=== PATIENT | female | born 1985 | race African-American/Black ===

== ENCOUNTER 2016-02-22 21:24 | Emergency (ER) | payer OTHER ==
[~2016-02-22] VITALS: Ht 157.5 cm; Wt 90.0 kg
[~2016-02-22 21:24] MED LIST: IBUP800T23 PO; ROBA500T PO
[2016-02-22 21:26] VITALS: BP 175/112; PULSE 79; RESP 16; TEMP 98.4; O2SAT 94
[2016-02-22] MEDS ORDERED: ROBA500T PO (21:54)
[2016-02-22] MEDS ORDERED: IBUP800T23 PO (21:54)
--- NOTE | 2016-02-22 21:58 | PD ---
HPI Chief Complaint: Pain: Acute or Chronic Time Seen by Provider: 21:48 Travel History International Travel<30 days: No Contact w/Intl Traveler<30days: No Traveled to known affect area: No History of Present Illness HPI This is a 31-year-old female with a long-standing history of sciatica who presents for evaluation of the same. She reports that she was diagnosed with sciatica when she was 18 years old. Over the past 3 months she has been having worsening sciatic pain. She describes it as a sharp pain in her right buttocks that radiates down the anterior aspect of the right leg. Pain is worse with movement, walking. She has tried [id number] medications but symptoms persist. Recently she started going to a chiropractor as well. She denies any abdominal pain, bowel or bladder incontinence, saddle anesthesia, dysuria, hematuria, IV drug abuse, history of cancer. Denies any known mechanism of injury. She has no other complaints at this time. PFSH Past Medical History Asthma: Yes Depression: Yes Diminished Hearing: No Hypertension: Yes ?: Not : 0 Para: 0 Social History Alcohol Use: No (1 BEER DAILY) Tobacco Use: Yes (<1 PPD) Substance Use: No Allergies-Medications (Allergen,Severity, Reaction): Coded Allergies: No Known Allergies (Verified , 02/22/16) Reported Meds & Prescriptions Reported Meds & Active Scripts Active Ibuprofen 800 Mg Tab 800 Mg PO Q6HR PRN Robaxin (Methocarbamol) 500 Mg Tab 500 Mg PO QID PRN Review of Systems Except as stated in HPI: all other systems reviewed are Neg Physical Exam Narrative GENERAL: Well-developed well-nourished female in no acute distress SKIN: Warm and dry. CARDIOVASCULAR: Regular rate and rhythm. No murmur appreciated. RESPIRATORY: No accessory muscle use. Clear to auscultation. Breath sounds equal bilaterally. GASTROINTESTINAL: Abdomen soft, non-tender, nondistended. MUSCULOSKELETAL: No obvious deformities. Positive straight leg raise on the right side. The patient has full muscle strength in the lower extremities. There is no lower extremity edema with negative Homans bilaterally. 2+ dorsalis pedis and posterior tibial pulses bilaterally. There is tenderness to palpation in the right sacroiliac musculature region. There is no tenderness to palpation along the lumbar midline. No CVA tenderness. NEUROLOGICAL: Awake and alert. No obvious cranial nerve deficits. Motor grossly within normal limits. Normal speech. Data Data Last Documented VS Vital Signs Date Time Temp Pulse Resp B/P Pulse Ox O2 Delivery O2 Flow Rate FiO2 02/22/16 21:26 98.4 79 16 175/112 94 Room Air Orders Ketorolac Inj (Toradol Inj) (02/22/16 22:00) Orphenadrine Inj (Norflex Inj) (02/22/16 22:00) MDM Medical Decision Making Medical Screen Exam Complete: Yes Emergency Medical Condition: Yes Medical Record Reviewed: Yes Differential Diagnosis Herniated nucleus pulposus, piriformis syndrome, muscle spasm, muscle strain, DVT, peripheral vascular disease, intermittent claudication, spinal stenosis, ankylosing spondylitis Narrative Course 31-year-old female with a long-standing history of sciatica presents for evaluation of symptoms consistent with her previous sciatic pain. Plan is to treat her symptomatically with NSAIDs, muscle relaxants. I did recommend that she follow up with primary care physician for this long-standing issue, likely for outpatient physical therapy versus pain management versus neurosurgery referral. Diagnosis Primary Impression: Sciatica Qualified Code: M54.31 - Sciatica of right side Additional Instructions: Medication as needed. Do not take ibuprofen with meals. Do not drive or drink alcohol when taking Robaxin. Follow-up with primary care physician. Return for any emergent medical conditions. Med/Other Pt SpecificInfo: Prescription(s) given Scripts Ibuprofen 800 Mg [id number] Mg PO Q6HR PRN (PAIN) #30 TAB Ref 0 Prov:Lorelei Rizo DO 02/22/16 Methocarbamol (Robaxin)500 Mg [id number] Mg PO QID PRN (MUSCLE SPASM) #30 TAB Ref 0 Prov:Lorelei Rizo DO 02/22/16 Disposition: 01 DISCHARGE HOME Condition: Stable Jorge Handley Feb 22, 2016 21:58
[2016-02-22] MEDS ORDERED: ORPHENADRINE INJ 60 MG/2 ML AMP IM ONE (22:00)
[2016-02-22] MEDS ORDERED: KETOROLAC TROMETHAMINE 60 MG/2 ML (IM) VIAL IM ONE (22:00)
[2016-04-01] MEDS ORDERED: MOTR200T4 PO (11:09)
[2016-04-01] MEDS ORDERED: ACET-703 PO (11:09)
[2016-04-01] MEDS ORDERED: NAPR220T95 PO (11:09)
[2016-04-01] MEDS ORDERED: ROBA500T PO (11:33)
[2016-04-01] MEDS ORDERED: IBUP800T23 PO (11:33)
[2016-05-01] MEDS ORDERED: HYDR12.56 PO ×2 (11:19→11:55)
[2016-05-01] MEDS ORDERED: ALBU0.08 NEB (11:29)
[2016-05-01] MEDS ORDERED: BENZ100 PO (11:29)
[2016-05-01] MEDS ORDERED: ALBUAER3 INH (11:29)
[2016-05-01] MEDS ORDERED: PRED20 PO (11:29)
[2016-05-01] MEDS ORDERED: IPRASOL INH (11:51)
== END 2016-02-22 22:38 | disposition home or self-care (01) ==
LOC: NEPB 21:24
DX: M54.31 Sciatica, right side (principal); J45.909 Unspecified asthma, uncomplicated; I10 Essential (primary) hypertension
CPT/HCPCS: 96372; 99283; J1885; J2360

== ENCOUNTER 2016-04-17 16:54 | Emergency (ER) | payer SELFPAY ==
[~2016-04-17] VITALS: Ht 157.5 cm; Wt 90.0 kg
[~2016-04-17 16:54] MED LIST changes: +ACET-703 PO; +MOTR200T4 PO; +NAPR220T95 PO
[2016-04-17 16:56] VITALS: BP 178/114; PULSE 130; RESP 20; TEMP 102.7; O2SAT 89
--- NOTE | 2016-04-17 18:44 | PD ---
HPI Chief Complaint: Fever Time Seen by Provider: 18:44 Travel History International Travel<30 days: No Contact w/Intl Traveler<30days: No Traveled to known affect area: No History of Present Illness HPI 31-year-old female with history of asthma and hypertension presents to the emergency department for evaluation of fever, chills, cough, chest congestion, and nausea worsening over the last 2 days. Patient denies any vomiting. She has been voiding normal. Denies any abdominal pain. She has no nuchal rigidity , headache, focal deficits, or weakness. She has no other symptoms to report at this time. [facility] Past Medical History Asthma: Yes Depression: Yes Diminished Hearing: No Hypertension: Yes ?: Not LMP: MAR 2016 : 0 Para: 0 Social History Alcohol Use: No (1 BEER DAILY) Tobacco Use: Yes (<1 PPD) Substance Use: No Allergies-Medications (Allergen,Severity, Reaction): Coded Allergies: No Known Allergies (Verified , 04/01/16) Reported Meds & Prescriptions Reported Meds & Active Scripts Active Ibuprofen 800 Mg Tab 800 Mg PO Q6HR PRN Robaxin (Methocarbamol) 500 Mg Tab 500 Mg PO QID PRN Reported Tylenol Extra Strength (Acetaminophen) 500 Mg Tab 500 Mg PO Q4-6H PRN Motrin Ib (Ibuprofen) 200 Mg Tab 200 Mg PO Q4H PRN Aleve (Naproxen Sodium) 220 Mg Tab 220 Mg PO BID PRN Review of Systems Except as stated in HPI: all other systems reviewed are Neg Physical Exam Narrative GENERAL: Well-nourished female patient, sitting on the bed, in no acute distress SKIN: Warm and dry. HEAD: Atraumatic. Normocephalic. EYES: Pupils equal and round. No scleral icterus. No injection or drainage. ENT: No nasal bleeding or discharge. Mucous membranes pink and moist. NECK: Trachea midline. No JVD. CARDIOVASCULAR: Tachycardic rate and rhythm. No murmur appreciated. RESPIRATORY: No accessory muscle use. Diminished to auscultation. Breath sounds equal bilaterally. GASTROINTESTINAL: Abdomen soft, non-tender, nondistended. Hepatic and splenic margins not palpable. MUSCULOSKELETAL: No obvious deformities. No clubbing. No cyanosis. No edema. NEUROLOGICAL: Awake and alert. No obvious cranial nerve deficits. Motor grossly within normal limits. Normal speech. PSYCHIATRIC: Appropriate mood and affect; insight and judgment normal. Data Data Last Documented VS Vital Signs Date Time Temp Pulse Resp B/P Pulse Ox O2 Delivery O2 Flow Rate FiO2 04/17/16 16:56 102.7 130 20 178/114 89 Room Air Orders Electrocardiogram (04/17/16 18:43) Complete Blood Count With Diff (04/17/16 18:43) Comprehensive Metabolic Panel (04/17/16 18:43) Prothrombin Time / Inr (Pt) (04/17/16 18:43) Act Partial Throm Time (Ptt) (04/17/16 18:43) Lactic Acid Sepsis Protocol (04/17/16 18:43) Magnesium (Mg) (04/17/16 18:43) Ckmb (Isoenzyme) Profile (04/17/16 18:43) Troponin I (04/17/16 18:43) Urinalysis - C+S If Indicated (04/17/16 18:43) Influenzae A/B Antigen (04/17/16 18:43) Blood Culture (04/17/16 18:43) Chest, Single Ap (04/17/16 18:43) Ed Urine Pregnancytest Poc (04/17/16 18:43) Acetaminophen (Tylenol) (04/17/16 19:00) Sodium Chlor 0.9% 1000 Ml Inj (Ns 1000 M (04/17/16 19:45) Group A Rapid Strep Screen (04/17/16 19:45) Labs Laboratory Tests Test 04/17/16 19:10 White Blood Count 6.0 TH/MM3 Red Blood Count 4.84 MIL/MM3 Hemoglobin 15.0 GM/DL Hematocrit 44.3 % Mean Corpuscular Volume 91.5 FL Mean Corpuscular Hemoglobin 31.0 PG Mean Corpuscular Hemoglobin 33.9 % Concent Red Cell Distribution Width 13.9 % Platelet Count 210 TH/MM3 Mean Platelet Volume 8.5 FL Neutrophils (%) (Auto) 78.8 % Lymphocytes (%) (Auto) 7.7 % Monocytes (%) (Auto) 12.9 % Eosinophils (%) (Auto) 0.3 % Basophils (%) (Auto) 0.3 % Neutrophils # (Auto) 4.8 TH/MM3 Lymphocytes # (Auto) 0.5 TH/MM3 Monocytes # (Auto) 0.8 TH/MM3 Eosinophils # (Auto) 0.0 TH/MM3 Basophils # (Auto) 0.0 TH/MM3 CBC Comment DIFF FINAL Differential Comment Prothrombin Time 10.7 SEC Prothromb Time International 1.0 RATIO Ratio Activated Partial 26.9 SEC Thromboplast Time Urine Color YELLOW Urine Turbidity HAZY Urine pH 6.5 Urine Specific [place] 1.035 Urine Protein 30 mg/dL Urine Glucose (UA) NEG mg/dL Urine Ketones 10 mg/dL Urine Occult Blood NEG Urine Nitrite NEG Urine Bilirubin NEG Urine Urobilinogen 4.0 MG/DL Urine Leukocyte Esterase SMALL Urine WBC 3 /hpf Urine Squamous Epithelial 20 /hpf Cells Urine Mucus FEW /lpf Microscopic Urinalysis Comment CATH-CULT NOT IND Sodium Level 136 MEQ/L Potassium Level 3.3 MEQ/L Chloride Level 103 MEQ/L Carbon Dioxide Level 25.6 MEQ/L Anion Gap 7 MEQ/L Blood Urea Nitrogen 10 MG/DL Creatinine 1.06 MG/DL Estimat Glomerular Filtration 72 ML/MIN Rate Random Glucose 105 MG/DL Lactic Acid Level 2.0 mmol/L Calcium Level 8.9 MG/DL Magnesium Level 2.3 MG/DL Total Bilirubin 0.4 MG/DL Aspartate Amino Transf 21 U/L (AST/SGOT) Alanine Aminotransferase 27 U/L (ALT/SGPT) Alkaline Phosphatase 88 U/L Total Creatine Kinase 57 U/L Troponin I LESS THAN 0.02 NG/ML Total Protein 9.6 GM/DL Albumin 4.2 GM/DL [facility] Medical Decision Making Medical Screen Exam Complete: Yes Emergency Medical Condition: Yes Medical Record Reviewed: Yes Differential Diagnosis Influenza versus pneumonia versus bronchitis versus UTI versus sepsis Narrative Course 31-year-old female presents to [facility] for evaluation. Workup is initiated in triage. Once a medical bed becomes available, patient will be transferred and care assumed by that provider. Condition: Stable RodriguezNoam godwintye FREITAS Apr 17, 2016 18:44
[2016-04-17] MEDS ORDERED: ACETAMINOPHEN 325 MG TAB PO ONE (19:00)
[2016-04-17 19:15] VITALS: BP 105/66; PULSE 111; RESP 20; O2SAT 97
[2016-04-17] MEDS ORDERED: SODIUM CHLOR 0.9% 1000 ML INJ 1,000 ML IV ONE ×2 (19:45→21:45)
--- NOTE | 2016-04-17 19:45 | PD ---
Physical Exam Date Seen by Provider: Apr 17, 2016 Time Seen by Provider: 19:42 Narrative 31-year-old female presents to the emergency department for evaluation of flulike symptoms for the past 2 days. Workup was initiated triage. Patient states for the past 2 days, she has had fevers, cough, congestion, nausea. She reports chest pain with coughing. She reports a history of sciatica and takes ibuprofen and Robaxin at home. She denies any history of pneumonia. She does not smoke tobacco. Patient denies any vomiting. She has no nuchal rigidity. Patient denies any chance of . GENERAL: Well-developed well-nourished female patient, ambulatory. Patient has a temperature 102.7. SKIN: Warm and dry. HEAD: Normocephalic. Atraumatic. ENT: Mucosa pink and moist. Bilateral tonsils are erythematous without exudates. No uvular edema. No uvular, palatal, or tonsillar deviation. Airway patent. Nasal turbinates appear normal without nasal blood, purulent drainage or septal hematoma. EYES: No scleral icterus. No injection or drainage. NECK: Supple, trachea midline. No JVD or lymphadenopathy. CARDIOVASCULAR: Regular rate and rhythm without murmurs, gallops, or rubs. RESPIRATORY: Breath sounds equal bilaterally. No accessory muscle use. Lungs sounds are clear to auscultation. GASTROINTESTINAL: Abdomen soft, non-tender, nondistended. MUSCULOSKELETAL: No cyanosis, or edema. BACK: Nontender without obvious deformity. No CVA tenderness. Data Data Last Documented VS Vital Signs Date Time Temp Pulse Resp B/P Pulse Ox O2 Delivery O2 Flow Rate FiO2 04/17/16 21:02 101.0 116 20 147/99 97 Room Air Orders Electrocardiogram (04/17/16 18:43) Complete Blood Count With Diff (04/17/16 18:43) Comprehensive Metabolic Panel (04/17/16 18:43) Prothrombin Time / Inr (Pt) (04/17/16 18:43) Act Partial Throm Time (Ptt) (04/17/16 18:43) Lactic Acid Sepsis Protocol (04/17/16 18:43) Magnesium (Mg) (04/17/16 18:43) Ckmb (Isoenzyme) Profile (04/17/16 18:43) Troponin I (04/17/16 18:43) Urinalysis - C+S If Indicated (04/17/16 18:43) Influenzae A/B Antigen (04/17/16 18:43) Blood Culture (04/17/16 18:43) Chest, Single Ap (04/17/16 18:43) Ed Urine Pregnancytest Poc (04/17/16 18:43) Acetaminophen (Tylenol) (04/17/16 19:00) Sodium Chlor 0.9% 1000 Ml Inj (Ns 1000 M (04/17/16 19:45) Group A Rapid Strep Screen (04/17/16 19:45) Strep Culture (Group A) (04/17/16 19:50) Ketorolac Inj (Toradol Inj) (04/17/16 21:45) Sodium Chlor 0.9% 1000 Ml Inj (Ns 1000 M (04/17/16 21:45) Potassium Chloride (Kcl) (04/17/16 22:45) Oseltamivir (Tamiflu) (04/17/16 22:45) Labs Laboratory Tests Test 04/17/16 19:10 White Blood Count 6.0 TH/MM3 Red Blood Count 4.84 MIL/MM3 Hemoglobin 15.0 GM/DL Hematocrit 44.3 % Mean Corpuscular Volume 91.5 FL Mean Corpuscular Hemoglobin 31.0 PG Mean Corpuscular Hemoglobin 33.9 % Concent Red Cell Distribution Width 13.9 % Platelet Count 210 TH/MM3 Mean Platelet Volume 8.5 FL Neutrophils (%) (Auto) 78.8 % Lymphocytes (%) (Auto) 7.7 % Monocytes (%) (Auto) 12.9 % Eosinophils (%) (Auto) 0.3 % Basophils (%) (Auto) 0.3 % Neutrophils # (Auto) 4.8 TH/MM3 Lymphocytes # (Auto) 0.5 TH/MM3 Monocytes # (Auto) 0.8 TH/MM3 Eosinophils # (Auto) 0.0 TH/MM3 Basophils # (Auto) 0.0 TH/MM3 CBC Comment DIFF FINAL Differential Comment Prothrombin Time 10.7 SEC Prothromb Time International 1.0 RATIO Ratio Activated Partial 26.9 SEC Thromboplast Time Urine Color YELLOW Urine Turbidity HAZY Urine pH 6.5 Urine Specific [place] 1.035 Urine Protein 30 mg/dL Urine Glucose (UA) NEG mg/dL Urine Ketones 10 mg/dL Urine Occult Blood NEG Urine Nitrite NEG Urine Bilirubin NEG Urine Urobilinogen 4.0 MG/DL Urine Leukocyte Esterase SMALL Urine WBC 3 /hpf Urine Squamous Epithelial 20 /hpf Cells Urine Mucus FEW /lpf Microscopic Urinalysis Comment CATH-CULT NOT IND Sodium Level 136 MEQ/L Potassium Level 3.3 MEQ/L Chloride Level 103 MEQ/L Carbon Dioxide Level 25.6 MEQ/L Anion Gap 7 MEQ/L Blood Urea Nitrogen 10 MG/DL Creatinine 1.06 MG/DL Estimat Glomerular Filtration 72 ML/MIN Rate Random Glucose 105 MG/DL Lactic Acid Level 2.0 mmol/L Calcium Level 8.9 MG/DL Magnesium Level 2.3 MG/DL Total Bilirubin 0.4 MG/DL Aspartate Amino Transf 21 U/L (AST/SGOT) Alanine Aminotransferase 27 U/L (ALT/SGPT) Alkaline Phosphatase 88 U/L Total Creatine Kinase 57 U/L Troponin I LESS THAN 0.02 NG/ML Total Protein 9.6 GM/DL Albumin 4.2 GM/DL [facility] Medical Record Reviewed: Yes Supervised Visit with TAYLOR: No Interpretation(s) Last Impressions Chest X-Ray 04/17/16 1843 Signed Impressions: Service Date/Time: Sunday, April 17, 2016 18:57 - CONCLUSION: No acute disease. Ryan Collier MD Differential Diagnosis Influenza versus pneumonia versus bronchitis versus UTI versus strep pharyngitis Narrative Course 31-year-old female presents to the emergency department for evaluation of flulike symptoms for the past 2 days. Workup was initiated in triage. EKG, CBC , CMP, PTT, PTT/INR, lactic acid, magnesium, CK, troponin, UA, and influenza, blood cultures 2, chest x-ray were ordered and pending. Strep swab is ordered and pending. Patient is given normal saline 1 L IV bolus. Patient was given Tylenol 650 mg by mouth in triage. EKG shows ST, HR 120, no acute ST changes. CBC shows no acute abnormality. CMP shows hypokalemia at 3.3, creatinine 1.06. Magnesium is 2.3. CK is 57. Troponin is less than 0.02. Lactic Acid is 2.0. UA shows no acute infection. UPT is negative. Influenza is negative. Strep is negative. Coags are unremarkable. Chest x-ray shows no acute disease. Patient has been on exam. Patient is given Toradol 30 mg IV and additional 1 L normal saline IV bolus. She started on Tamiflu given potassium 20 meq by mouth. Patient states she feels much better. The patient will be discharged with a prescription for Tamiflu. She is instructed to return for any acute worsening of symptoms. She is agreeable. Diagnosis Primary Impression: Influenza Referrals: Primary Care Physician call for appointment Patient Instructions: General Instructions, Influenza (ED) Additional Instruction: Take Tylenol every 4 hours as needed for fever, bodyaches. [id number] ibuprofen every 6-8 hours as needed for fever/body aches. Take Tamiflu as directed. Drink plenty of fluids Follow-up with your primary care physician. Return immediately for any acute worsening of symptoms. Med/Other Pt SpecificInfo: Prescription(s) given Scripts Oseltamivir (Tamiflu)75 Mg Cap75 Mg PO BID 5 Days Ref 0 Prov:So Clark 04/17/16 Disposition: 01 DISCHARGE HOME Condition: Stable So Clark Apr 17, 2016 19:45
--- NOTE | 2016-04-17 19:47 | RADRPT ---
EXAM DATE/TIME: 04/17/2016 18:57 [place] COMPARISON: CHEST SINGLE AP, October 12, 2005, 1:14. INDICATIONS : Cough, fever, chest congestion starting today MEDICAL HISTORY : None. SURGICAL HISTORY : None. ENCOUNTER: Initial ACUITY: 1 day PAIN SCORE: 0/10 LOCATION: Bilateral chest FINDINGS: A single view of the chest demonstrates the lungs to be symmetrically aerated without evidence of mas s, infiltrate or effusion. The cardiomediastinal contours are unremarkable. Osseous structures are intact. CONCLUSION: No acute disease. Ryan Collier MD on April 17, 2016 at 19:45 Board Certified Radiologist. This report was verified electronically.
[2016-04-17 19:52] LABS: BLOOD, URINE NEG (NEG); GLUCOSE,URINE NEG (NEG); KETONE, URINE 10 mg/dL (NEG); MUCUS URINE FEW /lpf (OCC); NITRITE,URINE NEG (NEG); PH, URINE 6.5 (5.0-8.5); SQUAMOUS EPITHELIAL CELL URINE 20 /hpf (0-5); URINE COLOR YELLOW (YELLW/STRAW)
[2016-04-17 19:53] LABS: COMMENT (UR) CATH-CULT NOT IND; CULTURE IF INDICATED CATH CULTURE NOT IND
[2016-04-17 19:55] LABS: AUTOMATED NEUTROPHIL # 4.8 TH/MM3 (1.8-7.7); BASOPHIL % 0.3 % (0.0-2.0); EOSINOPHIL % 0.3 % (0.0-4.0); HEMATOCRIT 44.3 % (35.0-46.0); HEMO FLAGS DIFF FINAL; LYMPH % 7.7 % (9.0-44.0); LYMPHOCYTE # 0.5 TH/MM3 (1.0-4.8); MEAN CELL VOLUME 91.5 FL (80.0-100.0); MEAN CORPUSCULAR HGB CONC 33.9 % (32.0-36.0); MONO % 12.9 % (0.0-8.0); NEUT % 78.8 % (16.0-70.0); PLATELET COUNT 210 TH/MM3 (150-450); RED BLOOD COUNT 4.84 MIL/MM3 (4.00-5.30); RED CELL DISTRIBUTION WIDTH 13.9 % (11.6-17.2)
[2016-04-17 20:03] LABS: APTT (PATIENT) 26.9 SEC (24.3-30.1); PROTHROMBIN TIME - PATIENT 10.7 SEC (9.8-11.6)
[2016-04-17 20:09] LABS: ANION GAP 7 MEQ/L (5-15); AST (GOT) 21 U/L (15-37); BICARBONATE 25.6 MEQ/L (21.0-32.0); BLOOD UREA NITROGEN 10 MG/DL (7-18); CHLORIDE 103 MEQ/L (98-107); GLOMERULAR FILTRATION RATE 72 ML/MIN (>89); MAGNESIUM 2.3 MG/DL (1.5-2.5); POTASSIUM 3.3 MEQ/L (3.5-5.1); SODIUM (NA) 136 MEQ/L (136-145)
[2016-04-17 20:13] LABS: ALKALINE PHOSPHATASE 88 U/L (45-117); ALT (GPT) 27 U/L (10-53); TOTAL BILIRUBIN ADULT 0.4 MG/DL (0.2-1.0)
[2016-04-17 20:17] LABS: CREATINE KINASE 57 U/L (26-192)
[2016-04-17 21:02] VITALS: BP 147/99; PULSE 116; RESP 20; TEMP 101; O2SAT 97
[2016-04-17] MEDS ORDERED: KETOROLAC TROMETHAMINE 30 MG/ML (IVP) VIAL IV PUSH ONE (21:45)
[2016-04-17] MEDS ORDERED: OSELTAMIVIR PHOSPHATE 75 MG CAP PO ONE (22:45)
[2016-04-17] MEDS ORDERED: POTASSIUM CHLORIDE 20 MEQ CONTROLLED RELEASE TAB PO ONE (22:45)
[2016-04-17] MEDS ORDERED: OSEL75 PO (22:49)
--- NOTE | 2016-04-18 19:02 | EKG ---
Date Performed: 04/17/2016 Time Performed: 19:01:39 PTAGE: 31 years EKG: SINUS TACHYCARDIA CONSIDER MYOCARDIAL INFARCTION-age indeterminate. ABNORMAL ECG PREVIOUS TRACING : 11/07/2006 02.58 DOCTOR: Claudio Nolasco Interpretating Date/Time 04/18/2016 19:01:01
[2016-05-01] MEDS ORDERED: HYDR12.56 PO ×2 (11:19→11:55)
[2016-05-01] MEDS ORDERED: ALBUAER3 INH (11:29)
[2016-05-01] MEDS ORDERED: BENZ100 PO (11:29)
[2016-05-01] MEDS ORDERED: ALBU0.08 NEB (11:29)
[2016-05-01] MEDS ORDERED: PRED20 PO (11:29)
[2016-05-01] MEDS ORDERED: IPRASOL INH (11:51)
== END 2016-04-18 00:17 | disposition home or self-care (01) ==
LOC: NETRI 16:54 → NEPC 04-18 00:17
DX: J11.1 Influenza due to unidentified influenza virus with other respiratory manifestations (principal); J45.909 Unspecified asthma, uncomplicated; F32.9 Major depressive disorder, single episode, unspecified; I10 Essential (primary) hypertension
CPT/HCPCS: 71010; 80053; 81001; 82550; 83605; 83735; 84484; 84703; 85025; 85610; 85730; 87040; 87081; 87804; 87880; 93005; 96374; 99284; J1885; J7030

== ENCOUNTER 2016-12-22 14:33 | Emergency (ER) | payer SELFPAY ==
[~2016-12-22 14:33] MED LIST changes: +ALBU0.08 NEB; +ALBUAER3 INH; +BENZ100 PO; +HYDR12.56 PO; +IBUP1TAB7 PO; -IBUP800T23 PO; +OSEL75 PO; +PRED20 PO
[2016-12-22 14:36] VITALS: BP 173/102; PULSE 87; RESP 22; TEMP 99.1; O2SAT 97
[2016-12-22 15:49] LABS: AUTOMATED NEUTROPHIL # 4.3 TH/MM3 (1.8-7.7); BASOPHIL % 0.7 % (0.0-2.0); EOSINOPHIL # 0.2 TH/MM3 (0-0.4); EOSINOPHIL % 2.4 % (0.0-4.0); HEMATOCRIT 41.9 % (35.0-46.0); HEMO FLAGS DIFF FINAL; LYMPH % 28.9 % (9.0-44.0); MEAN CELL VOLUME 89.5 FL (80.0-100.0); MEAN CORPUSCULAR HEMOGLOBIN 29.8 PG (27.0-34.0); MEAN CORPUSCULAR HGB CONC 33.3 % (32.0-36.0); PLATELET COUNT 221 TH/MM3 (150-450); RED BLOOD COUNT 4.69 MIL/MM3 (4.00-5.30); RED CELL DISTRIBUTION WIDTH 12.9 % (11.6-17.2); WHITE BLOOD COUNT 6.9 TH/MM3 (4.0-11.0)
[2016-12-22 15:54] LABS: BACTERIA, URINE RARE /hpf; BLOOD, URINE NEG (NEG); COMMENT (UR) CULT NOT INDICATED; CULTURE IF INDICATED CULT NOT INDICATED; GLUCOSE,URINE NEG (NEG); KETONE, URINE NEG (NEG); NITRITE,URINE NEG (NEG); PH, URINE 5.5 (5.0-8.5); SQUAMOUS EPITHELIAL CELL URINE 2 /hpf (0-5); URINE COLOR YELLOW (YELLW/STRAW)
[2016-12-22 16:02] LABS: ANION GAP 8 MEQ/L (5-15); BICARBONATE 24.7 MEQ/L (21.0-32.0); BLOOD UREA NITROGEN 10 MG/DL (7-18); CHLORIDE 106 MEQ/L (98-107); GLOMERULAR FILTRATION RATE 111 ML/MIN (>89); POTASSIUM 3.9 MEQ/L (3.5-5.1); SODIUM (NA) 139 MEQ/L (136-145)
[2016-12-22 16:08] LABS: ALCOHOL LESS THAN 3 MG/DL (0-5)
[2016-12-22 16:49] VITALS: BP_SYST 171; BP_SYST 185; BP_DIAS 113; BP_DIAS 119; PULSE 70; RESP 16; O2SAT 100
[2016-12-22] MEDS ORDERED: LISI10TA3 PO ×2 (16:52→16:58)
--- NOTE | 2016-12-22 16:55 | PD ---
HPI Chief Complaint: Hypertension Time Seen by Provider: 16:54 Travel History International Travel<30 days: No Contact w/Intl Traveler<30days: No Traveled to known affect area: No History of Present Illness HPI 31-year-old female presents for evaluation of asymptomatic hypertension. She reports that she has a history of hypertension. She has not taken her lisinopril for 3 weeks. She had an appointment with her counselor Noah Altman today and her blood pressure was elevated so they sent her here. She has no medical complaints. She reports that she has a history of alcoholism, underwent detoxification 1 month ago but she has been relapsing, her last drink was 2 days ago. No other complaints. PFSH Past Medical History Asthma: Yes Depression: Yes Cardiovascular Problems: Yes (HTN) Diminished Hearing: No Hypertension: Yes Tetanus Vaccination: Unknown Influenza Vaccination: No ?: Not LMP: UNKNOWN : 0 Para: 0 Past Surgical History Surgical History: No Previous Surgery Social History Alcohol Use: Yes (LIQUOR AND BEER) Tobacco Use: No Substance Use: No Allergies-Medications (Allergen,Severity, Reaction): Coded Allergies: No Known Allergies (Verified Adverse Reaction, Unknown, 12/22/16) Reported Meds & Prescriptions Reported Meds & Active Scripts Active Lisinopril 10 Mg Tab 10 Mg PO DAILY Reported Lisinopril 10 Mg Tab 10 Mg PO DAILY Review of Systems Except as stated in HPI: all other systems reviewed are Neg Physical Exam Narrative GENERAL: Well-developed well-nourished female in no acute distress SKIN: Warm and dry. HEAD: Atraumatic. Normocephalic. EYES: Pupils equal and round. No scleral icterus. No injection or drainage. ENT: No nasal bleeding or discharge. Mucous membranes pink and moist. NECK: Trachea midline. No JVD. CARDIOVASCULAR: Regular rate and rhythm. No murmur appreciated. RESPIRATORY: No accessory muscle use. Clear to auscultation. Breath sounds equal bilaterally. GASTROINTESTINAL: Abdomen soft, non-tender, nondistended. Hepatic and splenic margins not palpable. MUSCULOSKELETAL: No obvious deformities. No edema NEUROLOGICAL: Awake and alert. No obvious cranial nerve deficits. Motor grossly within normal limits. Normal speech. PSYCHIATRIC: Appropriate mood and affect; insight and judgment normal. Data Data Last Documented VS Vital Signs Date Time Temp Pulse Resp B/P (MAP) Pulse Ox O2 Delivery O2 Flow Rate FiO2 12/22/16 16:49 70 16 171/113 (132) 100 Room Air 185/119 (141) 12/22/16 14:36 99.1 Orders Orders Complete Blood Count With Diff (12/22/16 14:50) Basic Metabolic Panel (Bmp) (12/22/16 14:50) Urinalysis - C+S If Indicated (12/22/16 14:50) Electrocardiogram (12/22/16 14:50) Drug Screen, Random Urine (12/22/16 14:50) Alcohol (Ethanol) (12/22/16 14:50) Lisinopril (Prinivil) (12/22/16 17:00) Ed Discharge Order (12/22/16 17:16) Labs Laboratory Tests Test 12/22/16 15:11 White Blood Count 6.9 TH/MM3 Red Blood Count 4.69 MIL/MM3 Hemoglobin 13.9 GM/DL Hematocrit 41.9 % Mean Corpuscular Volume 89.5 FL Mean Corpuscular Hemoglobin 29.8 PG Mean Corpuscular Hemoglobin Concent 33.3 % Red Cell Distribution Width 12.9 % Platelet Count 221 TH/MM3 Mean Platelet Volume 7.8 FL Neutrophils (%) (Auto) 62.0 % Lymphocytes (%) (Auto) 28.9 % Monocytes (%) (Auto) 6.0 % Eosinophils (%) (Auto) 2.4 % Basophils (%) (Auto) 0.7 % Neutrophils # (Auto) 4.3 TH/MM3 Lymphocytes # (Auto) 2.0 TH/MM3 Monocytes # (Auto) 0.4 TH/MM3 Eosinophils # (Auto) 0.2 TH/MM3 Basophils # (Auto) 0.0 TH/MM3 CBC Comment DIFF FINAL Differential Comment Urine Color YELLOW Urine Turbidity CLEAR Urine pH 5.5 Urine Specific [place] 1.019 Urine Protein NEG mg/dL Urine Glucose (UA) NEG mg/dL Urine Ketones NEG mg/dL Urine Occult Blood NEG Urine Nitrite NEG Urine Bilirubin NEG Urine Urobilinogen LESS THAN 2.0 MG/DL Urine Leukocyte Esterase NEG Urine RBC 1 /hpf Urine WBC 1 /hpf Urine Squamous Epithelial Cells 2 /hpf Urine Bacteria RARE /hpf Microscopic Urinalysis Comment CULT NOT INDICATED Blood Urea Nitrogen 10 MG/DL Creatinine 0.73 MG/DL Random Glucose 105 MG/DL Calcium Level 8.7 MG/DL Sodium Level 139 MEQ/L Potassium Level 3.9 MEQ/L Chloride Level 106 MEQ/L Carbon Dioxide Level 24.7 MEQ/L Anion Gap 8 MEQ/L Estimat Glomerular Filtration Rate 111 ML/MIN Urine Opiates Screen NEG Urine Barbiturates Screen NEG Urine Amphetamines Screen NEG Urine Benzodiazepines Screen POS Urine Cocaine Screen NEG Urine Cannabinoids Screen NEG Ethyl Alcohol Level LESS THAN 3 MG/DL MDM Medical Decision Making Medical Screen Exam Complete: Yes Emergency Medical Condition: Yes Medical Record Reviewed: Yes Differential Diagnosis Medication noncompliance, asymptomatic hypertension, secondary hypertension Narrative Course Lab work was ordered by the triage provider and is essentially unremarkable. She is positive for benzodiazepines. Her primary problem appears to be noncompliance with her lisinopril. She'll be given a refill of her lisinopril. She is stable for discharge Diagnosis Primary Impression: Noncompliance with medication regimen Additional Impression: Hypertension Qualified Codes: I10 - Essential (primary) hypertension Additional Instructions: Take the lisinopril as prescribed. Monitor blood pressure regular basis and follow-up with primary care physician. Med/Other Pt SpecificInfo: Prescription(s) given Scripts Lisinopril (Lisinopril) 10 Mg Tab 10 MG PO DAILY, #30 TAB 0 Refills Prov: Shayan Jane MD 12/22/16 Disposition: 01 DISCHARGE HOME Condition: Stable Jorge Handley Dec 22, 2016 16:55
[2016-12-22] MEDS ORDERED: LISINOPRIL 10 MG TAB PO ONE (17:00)
[2016-12-22 17:38] VITALS: BP 165/110
== END 2016-12-22 17:40 | disposition home or self-care (01) ==
LOC: NEPD 14:33
DX: I10 Essential (primary) hypertension (principal); Z91.14 Patient's other noncompliance with medication regimen; F32.9 Major depressive disorder, single episode, unspecified; J45.909 Unspecified asthma, uncomplicated
CPT/HCPCS: 80048; 80307; 81001; 85025; 99283

== ENCOUNTER 2017-02-25 10:22 | Emergency (ER) | payer OTHER ==
[~2017-02-25] VITALS: Ht 157.5 cm; Wt 90.0 kg
[~2017-02-25 10:22] MED LIST changes: -ACET-703 PO; -ALBU0.08 NEB; -ALBUAER3 INH; -BENZ100 PO; -HYDR12.56 PO; -IBUP1TAB7 PO; +LISI10TA3 PO; -MOTR200T4 PO; -NAPR220T95 PO; -OSEL75 PO; -PRED20 PO; -ROBA500T PO
[2017-02-25 10:23] VITALS: BP 185/115; PULSE 90; RESP 20; TEMP 98.9; O2SAT 96
[2017-02-25] MEDS ORDERED: SODIUM CHLOR 0.9% 1000 ML INJ 1,000 ML IV SCH (11:25)
[2017-02-25] MEDS ORDERED: ONDANSETRON HCL 4 MG/2 ML VIAL IVP ONE (11:30)
[2017-02-25] MEDS ORDERED: MORPHINE SULFATE 4 MG/ML INJ IV PUSH ONE (11:30)
[2017-02-25] MEDS ORDERED: KETOROLAC TROMETHAMINE 30 MG/ML (IVP) VIAL IVP ONE (11:30)
[2017-02-25] MEDS ORDERED: SODIUM CHLORIDE 0.9% FLUSH 10 ML FLUSH IV FLUSH PRN (11:30)
--- NOTE | 2017-02-25 11:33 | PD ---
HPI Chief Complaint: Abdominal Pain Time Seen by Provider: 11:19 Travel History International Travel<30 days: No Contact w/Intl Traveler<30days: No Traveled to known affect area: No History of Present Illness HPI The patient is a 32-year-old [place] female who presents emergency department for right lower quadrant abdominal pain. The patient has an intermittent history of right lower quadrant abdominal pain for last several months. The abdominal pain is intermittent, sharp, located right lower quadrant , occasionally radiates to the back. The patient denies any vaginal discharge, dysuria, or frequency, urgency, or vaginal bleeding. The patient states she is not sexually active, has a history of irregular menstrual cycles. The patient states her last menstrual cycle was 3 months ago, denies any previous diagnosis of polycystic ovarian syndrome or previous ovarian cyst. She does complain of occasional nausea and vomiting with the abdominal pain. She denies any diarrhea or constipation. She denies any previous abdominal surgeries. The patient did see her primary physician is [facility] who ordered laboratory evaluation outpatient which was unremarkable per the patient's report. The patient called her physician today and was referred to the emergency department for further evaluation. PFSH Past Medical History Asthma: Yes Depression: Yes Cardiovascular Problems: Yes (HTN) Diminished Hearing: No Hypertension: Yes Respiratory: Yes (ASTHMA) : 0 Para: 0 Social History Alcohol Use: Yes (LIQUOR AND BEER) Tobacco Use: No Substance Use: No Allergies-Medications (Allergen,Severity, Reaction): Coded Allergies: No Known Allergies (Verified Adverse Reaction, Unknown, 02/25/17) Reported Meds & Prescriptions Reported Meds & Active Scripts Active Lisinopril 10 Mg Tab 10 Mg PO DAILY Reported Lisinopril 10 Mg Tab 10 Mg PO DAILY Review of Systems Except as stated in HPI: all other systems reviewed are Neg General / Constitutional: Positive: Fever (intermittent fevers) Cardiovascular: No: Chest Pain or Discomfort Respiratory: No: Shortness of Breath Gastrointestinal: Positive: Nausea, Vomiting, Abdominal Pain, No: Diarrhea, Constipation, Loss of Appetite Genitourinary: No: Urgency, Frequency, Dysuria, Hematuria, Discharge, Vaginal Bleeding Physical Exam Narrative GENERAL: Awake, alert, pleasant 32-year-old female who appears her stated age and is in no acute respiratory distress. SKIN: Focused skin assessment warm/dry. HEAD: Atraumatic. Normocephalic. EYES: Pupils equal and round. No scleral icterus. No injection or drainage. ENT: No nasal bleeding or discharge. Mucous membranes pink and moist. NECK: Trachea midline. No JVD. CARDIOVASCULAR: Regular rate and rhythm. No murmur appreciated. RESPIRATORY: No accessory muscle use. Clear to auscultation. Breath sounds equal bilaterally. GASTROINTESTINAL: Abdomen soft, mild tenderness right lower quadrant suprapubic. No guarding or rigidity. Negative [place]. Back: No CVA tenderness. MUSCULOSKELETAL: No obvious deformities. No clubbing. No cyanosis. No edema. NEUROLOGICAL: Awake and alert. No obvious cranial nerve deficits. Motor grossly within normal limits. Normal speech. PSYCHIATRIC: Appropriate mood and affect; insight and judgment normal. Data Data Last Documented VS Vital Signs Date Time Temp Pulse Resp B/P (MAP) Pulse Ox O2 Delivery O2 Flow Rate FiO2 02/25/17 12:06 100 Room Air 02/25/17 10:23 98.9 90 20 Orders Orders Complete Blood Count With Diff (02/25/17 11:25) Comprehensive Metabolic Panel (02/25/17 11:25) Lipase (02/25/17 11:25) Urinalysis - C+S If Indicated (02/25/17 11:25) Ct Abd/Pel W/O Iv Contrast (02/25/17 11:25) Iv Access Insert/Monitor (02/25/17 11:25) Ecg Monitoring (02/25/17 11:25) Oximetry (02/25/17 11:25) Morphine Inj (Morphine Inj) (02/25/17 11:30) Ondansetron Inj (Zofran Inj) (02/25/17 11:30) Sodium Chlor 0.9% 1000 Ml Inj (Ns 1000 M (02/25/17 11:25) Sodium Chloride 0.9% Flush (Ns Flush) (02/25/17 11:30) Ketorolac Inj (Toradol Inj) (02/25/17 11:30) Ed Urine Pregnancytest Poc (02/25/17 11:25) Labs Laboratory Tests Test 02/25/17 12:00 White Blood Count 8.0 TH/MM3 Red Blood Count 4.93 MIL/MM3 Hemoglobin 14.5 GM/DL Hematocrit 43.6 % Mean Corpuscular Volume 88.3 FL Mean Corpuscular Hemoglobin 29.3 PG Mean Corpuscular Hemoglobin Concent 33.2 % Red Cell Distribution Width 13.0 % Platelet Count 274 TH/MM3 Mean Platelet Volume 7.8 FL Neutrophils (%) (Auto) 56.2 % Lymphocytes (%) (Auto) 31.7 % Monocytes (%) (Auto) 7.2 % Eosinophils (%) (Auto) 4.4 % Basophils (%) (Auto) 0.5 % Neutrophils # (Auto) 4.5 TH/MM3 Lymphocytes # (Auto) 2.5 TH/MM3 Monocytes # (Auto) 0.6 TH/MM3 Eosinophils # (Auto) 0.4 TH/MM3 Basophils # (Auto) 0.0 TH/MM3 CBC Comment DIFF FINAL Differential Comment Urine Color YELLOW Urine Turbidity CLEAR Urine pH 5.5 Urine Specific [place] 1.012 Urine Protein NEG mg/dL Urine Glucose (UA) NEG mg/dL Urine Ketones NEG mg/dL Urine Occult Blood NEG Urine Nitrite NEG Urine Bilirubin NEG Urine Urobilinogen LESS THAN 2.0 MG/DL Urine Leukocyte Esterase NEG Urine RBC LESS THAN 1 /hpf Urine WBC LESS THAN 1 /hpf Urine Squamous Epithelial Cells 1 /hpf Urine Bacteria OCC /hpf Urine Mucus FEW /lpf Microscopic Urinalysis Comment CULT NOT INDICATED Blood Urea Nitrogen 7 MG/DL Creatinine 0.73 MG/DL Random Glucose 107 MG/DL Total Protein 8.6 GM/DL Albumin 3.8 GM/DL Calcium Level 8.7 MG/DL Alkaline Phosphatase 77 U/L Aspartate Amino Transf (AST/SGOT) 19 U/L Alanine Aminotransferase (ALT/SGPT) 39 U/L Total Bilirubin 0.2 MG/DL Sodium Level 140 MEQ/L Potassium Level 3.5 MEQ/L Chloride Level 107 MEQ/L Carbon Dioxide Level 27.2 MEQ/L Anion Gap 6 MEQ/L Estimat Glomerular Filtration Rate 110 ML/MIN Lipase 178 U/L MDM Medical Decision Making Medical Screen Exam Complete: Yes Emergency Medical Condition: Yes Medical Record Reviewed: Yes Interpretation(s) Laboratory Tests Test 02/25/17 12:00 White Blood Count 8.0 TH/MM3 Red Blood Count 4.93 MIL/MM3 Hemoglobin 14.5 GM/DL Hematocrit 43.6 % Mean Corpuscular Volume 88.3 FL Mean Corpuscular Hemoglobin 29.3 PG Mean Corpuscular Hemoglobin Concent 33.2 % Red Cell Distribution Width 13.0 % Platelet Count 274 TH/MM3 Mean Platelet Volume 7.8 FL Neutrophils (%) (Auto) 56.2 % Lymphocytes (%) (Auto) 31.7 % Monocytes (%) (Auto) 7.2 % Eosinophils (%) (Auto) 4.4 % Basophils (%) (Auto) 0.5 % Neutrophils # (Auto) 4.5 TH/MM3 Lymphocytes # (Auto) 2.5 TH/MM3 Monocytes # (Auto) 0.6 TH/MM3 Eosinophils # (Auto) 0.4 TH/MM3 Basophils # (Auto) 0.0 TH/MM3 CBC Comment DIFF FINAL Differential Comment Urine Color YELLOW Urine Turbidity CLEAR Urine pH 5.5 Urine Specific [place] 1.012 Urine Protein NEG mg/dL Urine Glucose (UA) NEG mg/dL Urine Ketones NEG mg/dL Urine Occult Blood NEG Urine Nitrite NEG Urine Bilirubin NEG Urine Urobilinogen LESS THAN 2.0 MG/DL Urine Leukocyte Esterase NEG Urine RBC LESS THAN 1 /hpf Urine WBC LESS THAN 1 /hpf Urine Squamous Epithelial Cells 1 /hpf Urine Bacteria OCC /hpf Urine Mucus FEW /lpf Microscopic Urinalysis Comment CULT NOT INDICATED Blood Urea Nitrogen 7 MG/DL Creatinine 0.73 MG/DL Random Glucose 107 MG/DL Total Protein 8.6 GM/DL Albumin 3.8 GM/DL Calcium Level 8.7 MG/DL Alkaline Phosphatase 77 U/L Aspartate Amino Transf (AST/SGOT) 19 U/L Alanine Aminotransferase (ALT/SGPT) 39 U/L Total Bilirubin 0.2 MG/DL Sodium Level 140 MEQ/L Potassium Level 3.5 MEQ/L Chloride Level 107 MEQ/L Carbon Dioxide Level 27.2 MEQ/L Anion Gap 6 MEQ/L Estimat Glomerular Filtration Rate 110 ML/MIN Lipase 178 U/L Differential Diagnosis Differential diagnosis includes polycystic ovarian syndrome, follicular cyst, ovarian torsion, appendicitis, inflammatory bowel disease, cervicitis, PID, UTI. Narrative Course IV was established, labs are drawn and sent, and the patient was placed on cardiac telemetry monitoring and continuous pulse oximetry monitoring. The patient was masseur/masseuse morphine, Toradol, Zofran, and IV fluids. UA was sent to lab and bedside UA test was obtained, was negative. CT of the abdomen and pelvis was performed. Laboratory evaluation included white count, LFTs, lipase are unremarkable. UA is normal. CT reveals a large solid mass most likely arising from the uterus suspected of being a leiomyoma. The patient will be referred to the women's care clinic, she may benefit from outpatient material man/gynecology evaluation. Diagnosis Primary Impression: Uterine mass Referrals: Service Team Leader [facility] Patient Instructions: General Instructions Additional Instructions: Follow-up with gynecology on an outpatient basis and/or the women's care clinic. Please provide the patient a copy of her labs and CT results at discharge. Med/Other Pt SpecificInfo: Prescription(s) given Scripts Hydrocodone-Acetaminophen (Neon) 5 Mg-325 Mg Tab 1 TAB PO Q6H Y for PAIN, #15 TAB 0 Refills Prov: Jaiden Morillo MD 02/25/17 Disposition: 01 DISCHARGE HOME Condition: Stable Jaiden Morillo MD Feb 25, 2017 11:33
[2017-02-25 12:06] VITALS: O2SAT 100
[2017-02-25 12:12] LABS: BACTERIA, URINE OCC /hpf; BILIRUBIN, URINE NEG (NEG); BLOOD, URINE NEG (NEG); GLUCOSE,URINE NEG (NEG); KETONE, URINE NEG (NEG); MUCUS URINE FEW /lpf (OCC); NITRITE,URINE NEG (NEG); PH, URINE 5.5 (5.0-8.5); SQUAMOUS EPITHELIAL CELL URINE 1 /hpf (0-5); URINE COLOR YELLOW (YELLW/STRAW); URINE LEUKOCYTE ESTERASE NEG (NEG)
[2017-02-25 12:13] LABS: AUTOMATED NEUTROPHIL # 4.5 TH/MM3 (1.8-7.7); BASOPHIL % 0.5 % (0.0-2.0); EOSINOPHIL # 0.4 TH/MM3 (0-0.4); EOSINOPHIL % 4.4 % (0.0-4.0); HEMATOCRIT 43.6 % (35.0-46.0); HEMOGLOBIN 14.5 GM/DL (11.6-15.3); LYMPH % 31.7 % (9.0-44.0); LYMPHOCYTE # 2.5 TH/MM3 (1.0-4.8); MEAN CELL VOLUME 88.3 FL (80.0-100.0); MEAN CORPUSCULAR HEMOGLOBIN 29.3 PG (27.0-34.0); MEAN CORPUSCULAR HGB CONC 33.2 % (32.0-36.0); MEAN PLATELET VOLUME 7.8 FL (7.0-11.0); MONO % 7.2 % (0.0-8.0); MONOCYTE # 0.6 TH/MM3 (0-0.9); NEUT % 56.2 % (16.0-70.0); PLATELET COUNT 274 TH/MM3 (150-450); RED BLOOD COUNT 4.93 MIL/MM3 (4.00-5.30)
[2017-02-25 12:28] LABS: ALBUMIN 3.8 GM/DL (3.4-5.0); ALT (GPT) 39 U/L (10-53); AST (GOT) 19 U/L (15-37); BICARBONATE 27.2 MEQ/L (21.0-32.0); BLOOD UREA NITROGEN 7 MG/DL (7-18); CALCIUM 8.7 MG/DL (8.5-10.1); CHLORIDE 107 MEQ/L (98-107); CREATININE 0.73 MG/DL (0.50-1.00); GLOMERULAR FILTRATION RATE 110 ML/MIN (>89); GLUCOSE,RANDOM 107 MG/DL (74-106); LIPASE 178 U/L (73-393); SODIUM (NA) 140 MEQ/L (136-145)
[2017-02-25 12:31] LABS: ALKALINE PHOSPHATASE 77 U/L (45-117); TOTAL BILIRUBIN ADULT 0.2 MG/DL (0.2-1.0); TOTAL PROTEIN 8.6 GM/DL (6.4-8.2)
--- NOTE | 2017-02-25 13:05 | RADRPT ---
EXAM DATE/TIME: 02/25/2017 12:27 [facility] COMPARISON: No previous studies available for comparison. INDICATIONS : Intermittent right lower abdominal pain, nausea, subjective fevers. ORAL CONTRAST: No oral contrast ingested. RADIATION DOSE: 23.91 CTDIvol (mGy) ; Patient body habitus MEDICAL HISTORY : Hypertension. SURGICAL HISTORY : None. ENCOUNTER: Initial ACUITY: 1 day PAIN SCALE: 7/10 LOCATION: Right lower quadrant TECHNIQUE: Volumetric scanning of the abdomen and pelvis was performed. Using automated exposure control and ad justment of the mA and/or kV according to patient size, radiation dose was kept as low as reasonably achievable to obtain optimal diagnostic quality images. DICOM format image data is available electro nically for review and comparison. FINDINGS: LOWER LUNGS: The visualized lower lungs are clear. LIVER: Homogeneous density without lesion. There is no dilation of the biliary tree. No calcified gallston es. SPLEEN: Normal size without lesion. PANCREAS: Within normal limits. KIDNEYS: Normal in size and shape. There is no mass, stone, or hydronephrosis. ADRENAL GLANDS: Within normal limits. VASCULAR: There is no aortic aneurysm. BOWEL/MESENTERY: The stomach, small bowel, and colon demonstrate no acute abnormality. There is no free intraperitone al air or fluid. ABDOMINAL WALL: Within normal limits. RETROPERITONEUM: There is no lymphadenopathy. BLADDER: No wall thickening or mass. REPRODUCTIVE: There is a large soft tissue mass within the pelvis measuring 9.6 x 14.2 cm across. The mass measures 13.0 cm in cephalocaudad height. I suspect is a large leiomyoma. I don't clearly see either of the o varies. There are some cysts within the left anterior pelvis could be functional cysts. INGUINAL: There is no lymphadenopathy or hernia. MUSCULOSKELETAL: Bilateral sacroiliitis CONCLUSION: Large solid mass arising in the pelvis most likely related to the uterus. Pelvic MRI may be helpful t o evaluate the location of the ovaries. Lazaro Hyman MD on February 25, 2017 at 12:58 Board Certified Radiologist. This report was verified electronically.
[2017-02-25] MEDS ORDERED: NORC5TAB PO (13:13)
[2017-02-25 13:29] VITALS: BP 132/67
== END 2017-02-25 13:43 | disposition home or self-care (01) ==
LOC: NEPD 10:22
DX: N85.8 Other specified noninflammatory disorders of uterus (principal); I10 Essential (primary) hypertension; F32.9 Major depressive disorder, single episode, unspecified; J45.909 Unspecified asthma, uncomplicated
CPT/HCPCS: 74176; 80053; 81001; 83690; 84703; 85025; 96361; 96374; 96375; 99285; J1885; J2270; J2405; J7030

== ENCOUNTER 2017-05-04 13:55 | Emergency (ER) | payer OTHER ==
[~2017-05-04 13:55] MED LIST changes: +NORC5TAB PO
[2017-05-04 14:33] VITALS: BP 143/100; PULSE 78; RESP 16; TEMP 98.6; O2SAT 96
[2017-05-04] MEDS ORDERED: KETOROLAC TROMETHAMINE 60 MG/2 ML (IM) VIAL IM ONE (15:45)
[2017-05-04] MEDS ORDERED: diphenhydrAMINE HCL 50 MG/ML VIAL IM ONE (15:45)
--- NOTE | 2017-05-04 15:49 | PD ---
HPI Chief Complaint: Hypertension Time Seen by Provider: 15:31 Travel History International Travel<30 days: No Contact w/Intl Traveler<30days: No Traveled to known affect area: No History of Present Illness HPI 32-year-old female with PMH of bipolar, PTSD, alcohol abuse, HTN presents to the ED for evaluation of high blood pressures. Patient states that she is currently being treated at [facility]. They sent her here for evaluation of high blood pressures. Patient endorses intermittent compliance with lisinopril, last dose today. She states that her BP is regularly ~196/110. On presentation she complains of right frontal headache. Throbbing in nature, rated 5/10. She said this is not similar to previous headaches. She denies vision changes, dizziness, nausea, vomiting. She states that she hasn't had alcohol in 3 days. PFSH Past Medical History Asthma: Yes Depression: Yes Cardiovascular Problems: Yes (HTN) Diminished Hearing: No Hypertension: Yes Respiratory: Yes (ASTHMA) : 0 Para: 0 Social History Alcohol Use: Yes Tobacco Use: No Substance Use: No Allergies-Medications (Allergen,Severity, Reaction): Coded Allergies: No Known Allergies (Verified Adverse Reaction, Unknown, 02/25/17) Reported Meds & Prescriptions Reported Meds & Active Scripts Active [place] (Hydrocodone-Acetaminophen) 5 Mg-325 Mg Tab 1 Tab PO Q6H PRN Lisinopril 10 Mg Tab 10 Mg PO DAILY Reported Lisinopril 10 Mg Tab 10 Mg PO DAILY Review of Systems Except as stated in HPI: all other systems reviewed are Neg Physical Exam Narrative GENERAL: Well-nourished, well-developed AA female in [facility]. SKIN: Focused skin assessment warm/dry. HEAD: Normocephalic. EYES: No scleral icterus. No injection or drainage. NECK: Supple, trachea midline. No JVD or lymphadenopathy. CARDIOVASCULAR: Regular rate and rhythm without murmurs, gallops, or rubs. RESPIRATORY: Breath sounds equal bilaterally. No accessory muscle use. GASTROINTESTINAL: Abdomen soft, non-tender, nondistended. MUSCULOSKELETAL: No cyanosis, or edema. NEUROLOGICAL: Awake and alert. Cranial nerves II through XII intact. Motor and sensory grossly within normal limits. Five out of 5 muscle strength in all muscle groups. Normal speech. BACK: Nontender without obvious deformity. No CVA tenderness. Data Data Last Documented VS Vital Signs Date Time Temp Pulse Resp B/P (MAP) Pulse Ox O2 Delivery O2 Flow Rate FiO2 05/04/17 17:21 05/04/17 16:51 86 18 05/04/17 14:33 [address] Brain W/O Iv Contrast(Rout) (05/04/17 ) Ketorolac Inj (Toradol Inj) (05/04/17 15:45) Diphenhydramine Inj (Benadryl Inj) (05/04/17 15:45) Ed Discharge Order (05/04/17 16:58) MDM Medical Decision Making Medical Screen Exam Complete: Yes Emergency Medical Condition: Yes Differential Diagnosis Resistant hypertension versus noncompliance versus cephalgia versus less likely ICH versus other Narrative Course 32-year-old female with PMH of bipolar, PTSD, alcohol abuse, HTN presents to the ED for evaluation of high blood pressures. Patient states that she is currently being treated at [facility]. They sent her here for evaluation of high blood pressures. Patient endorses intermittent compliance with lisinopril, last dose today. She states that her BP is regularly ~196/110. On presentation she complains of right frontal headache. Throbbing in nature, rated 5/10. BP 143/100 on presentation. On exam there are no focal neuro deficits. Patient was blistered IM Toradol and Benadryl. CT of the brain normal per radiology read. Recheck BP 135/98. Patient states her symptoms are improved. Patient's instructed to take lisinopril as prescribed, follow up with her primary care provider regarding education changes. She is stable and discharged back to [facility]. Diagnosis Primary Impression: Hypertension Qualified Codes: I10 - Essential (primary) hypertension Additional Impressions: Noncompliance Headache Qualified Codes: R51 - Headache Referrals: Primary Care Physician Additional Instructions: Rest, hydrate. Takes lisinopril every day as prescribed. Follow-up with her primary care provider for adjustment of your blood pressure medications. Return to the ED for any urgent or emergent medical condition. Disposition: 65 DISC TO PSYCH CARE FACILITY Condition: Stable Zita Estes May 04, 2017 15:49
--- NOTE | 2017-05-04 16:24 | RADRPT ---
EXAM DATE/TIME: 05/04/2017 16:14 [facility] COMPARISON: No previous studies available for comparison. INDICATIONS : Patient complains of headache, history of hypertension. RADIATION DOSE: 36.13 CTDIvol (mGy) MEDICAL HISTORY : Hypertension. SURGICAL HISTORY : None. ENCOUNTER: Initial ACUITY: 1 day PAIN SCALE: 5/10 LOCATION: cranial TECHNIQUE: Multiple contiguous axial images were obtained of the head. Using automated exposure control and adj ustment of the mA and/or kV according to patient size, radiation dose was kept as low as reasonably a chievable to obtain optimal diagnostic quality images. DICOM format image data is available electro nically for review and comparison. FINDINGS: CEREBRUM: The ventricles are normal for age. No evidence of midline shift, mass lesion, hemorrhage or acute in farction. No extra-axial fluid collections are seen. POSTERIOR FOSSA: The cerebellum and brainstem are intact. The 4th ventricle is midline. The cerebellopontine angle i s unremarkable. EXTRACRANIAL: The visualized portion of the orbits is intact. SKULL: The calvaria is intact. No evidence of skull fracture. CONCLUSION: 1. No acute intracranial abnormality. Nikita Babb MD on May 04, 2017 at 16:21 Board Certified Radiologist. This report was verified electronically.
[2017-05-04 16:51] VITALS: BP 135/98; PULSE 86; RESP 18
[2017-05-05] MEDS ORDERED: GABA100C4 PO (15:09)
[2017-05-05] MEDS ORDERED: BACL10TA PO (15:09)
[2017-05-05] MEDS ORDERED: PRED20 PO (17:37)
[2017-05-05] MEDS ORDERED: VALA1TAB PO (17:37)
== END 2017-05-04 17:22 ==
LOC: NED 13:55 → NEPK 17:22
DX: I10 Essential (primary) hypertension (principal); R51 Headache; Z91.14 Patient's other noncompliance with medication regimen
CPT/HCPCS: 70450; 96372; 99283; J1200; J1885

== ENCOUNTER 2017-05-05 14:39 | Emergency (ER) | payer OTHER ==
[2017-05-05 14:46] VITALS: BP 183/113; PULSE 75; RESP 18; TEMP 98; O2SAT 100
[2017-05-05 14:59] VITALS: BP 195/143; PULSE 80; RESP 25; TEMP 98.5; O2SAT 98
[2017-05-05] MEDS ORDERED: GABA100C4 PO (15:09)
[2017-05-05] MEDS ORDERED: BACL10TA PO (15:09)
[2017-05-05] MEDS ORDERED: SODIUM CHLORIDE 0.9% FLUSH 10 ML FLUSH IVF PRN (15:15)
--- NOTE | 2017-05-05 15:19 | PD ---
HPI Chief Complaint: Neuro Symptoms/ Deficits Time Seen by Provider: 15:05 Travel History International Travel<30 days: No Contact w/Intl Traveler<30days: No Traveled to known affect area: No History of Present Illness HPI 32-year-old female presents to the emergency department for evaluation of stroke symptoms. Patient states he has had a right-sided headache and numbness of her right tongue for 2 days. However, 1030 this morning, she started with right facial droop and weakness in the right arm and right leg. Patient reports history of hypertension, neuropathy. She denies a history of CVA or TIA. Patient was seen here yesterday and did have a CT scan of the brain at that time which was negative. Current pain at 6/10 to the right head. No exacerbating or alleviating factors. Moderate severity. PFSH Past Medical History Asthma: Yes Depression: Yes Cardiovascular Problems: Yes (HTN) Diminished Hearing: No Hypertension: Yes Medical other: Yes (SCIATICA) Respiratory: Yes (ASTHMA) ?: Unknown LMP: 1 month ago : 0 Para: 0 Past Surgical History Surgical History: No Previous Surgery Social History Alcohol Use: Yes (1/2 litter of vodka a day ) Tobacco Use: No Substance Use: No Allergies-Medications (Allergen,Severity, Reaction): Coded Allergies: No Known Allergies (Verified Adverse Reaction, Unknown, 02/25/17) Reported Meds & Prescriptions Reported Meds & Active Scripts Active [place] (Hydrocodone-Acetaminophen) 5 Mg-325 Mg Tab 1 Tab PO Q6H PRN Reported Baclofen 10 Mg Tab Unknown Dose PO Gabapentin 100 Mg Cap Unknown Dose PO TID Lisinopril 10 Mg Tab 10 Mg PO DAILY Review of Systems Except as stated in HPI: all other systems reviewed are Neg Physical Exam Narrative GENERAL: Well-nourished, well-developed female patient, afebrile. SKIN: Focused skin assessment warm/dry. HEAD: Normocephalic. Atraumatic. EYES: No scleral icterus. No injection or drainage. PERRLA. EOM intact NECK: Supple, trachea midline. No JVD or lymphadenopathy. CARDIOVASCULAR: Regular rate and rhythm without murmurs, gallops, or rubs. Bilateral radial and pedal pulses 2+ RESPIRATORY: Breath sounds equal bilaterally. No accessory muscle use. Lung sounds are clear to auscultation GASTROINTESTINAL: Abdomen soft, non-tender, nondistended. MUSCULOSKELETAL: No cyanosis, or edema. Right upper extremity strength 5/5, left upper extremity strength 5/5. Right lower external strength 4/5. Left lower extremity strength 4/5 BACK: Nontender without obvious deformity. No CVA tenderness. NEUROLOGICAL: Awake and alert. Patient alert oriented to person place, time. Finger to nose is normal bilaterally. [id number] is normal bilaterally. Right facial droop noted. Subjective loss of sensation to right arm/leg. Data Data Last Documented VS Vital Signs Date Time Temp Pulse Resp B/P (MAP) Pulse Ox O2 Delivery O2 Flow Rate FiO2 05/05/17 17:26 75 14 154/104 (121) 97 Room Air 05/05/17 14:59 98.5 Orders Orders Electrocardiogram (05/05/17 15:11) Prothrombin Time / Inr (Pt) (05/05/17 15:11) Act Partial Throm Time (Ptt) (05/05/17 15:11) Complete Blood Count With Diff (05/05/17 15:11) Comprehensive Metabolic Panel (05/05/17 15:11) Ct Brain W/O Iv Contrast(Rout) (05/05/17 15:11) Ecg Monitoring (05/05/17 15:11) Iv Access Insert/Monitor (05/05/17 15:11) Oximetry (05/05/17 15:11) Sodium Chloride 0.9% Flush (Ns Flush) (05/05/17 15:15) I-Stat Profile (05/05/17 15:19) Mri Brain W/O Contrast (05/05/17 ) Lyme Disease Pcr (05/05/17 16:08) Prednisone (Deltasone) (05/05/17 17:45) Labs Laboratory Tests Test 05/05/17 15:09 White Blood Count 7.8 TH/MM3 Red Blood Count 4.76 MIL/MM3 Hemoglobin 14.4 GM/DL Bedside Hemoglobin 14.3 G/DL Hematocrit 42.1 % Bedside Hematocrit 42.0 % Mean Corpuscular Volume 88.3 FL Mean Corpuscular Hemoglobin 30.2 PG Mean Corpuscular Hemoglobin Concent 34.1 % Red Cell Distribution Width 14.3 % Platelet Count 238 TH/MM3 Mean Platelet Volume 8.3 FL Neutrophils (%) (Auto) 49.2 % Lymphocytes (%) (Auto) 38.8 % Monocytes (%) (Auto) 8.3 % Eosinophils (%) (Auto) 3.2 % Basophils (%) (Auto) 0.5 % Neutrophils # (Auto) 3.8 TH/MM3 Lymphocytes # (Auto) 3.0 TH/MM3 Monocytes # (Auto) 0.6 TH/MM3 Eosinophils # (Auto) 0.2 TH/MM3 Basophils # (Auto) 0.0 TH/MM3 CBC Comment DIFF FINAL Differential Comment Prothrombin Time 9.8 SEC Prothromb Time International Ratio 1.0 RATIO Activated Partial Thromboplast Time 25.5 SEC Bedside Sodium 140 MMOL/L Blood Urea Nitrogen 13 MG/DL Creatinine 0.72 MG/DL Random Glucose 91 MG/DL Total Protein 8.2 GM/DL Albumin 3.6 GM/DL Calcium Level 8.7 MG/DL Alkaline Phosphatase 66 U/L Aspartate Amino Transf (AST/SGOT) 17 U/L Alanine Aminotransferase (ALT/SGPT) 18 U/L Total Bilirubin 0.1 MG/DL Sodium Level 139 MEQ/L Potassium Level 4.2 MEQ/L Chloride Level 106 MEQ/L Carbon Dioxide Level 24.9 MEQ/L Bedside Potassium 4.1 MMOL/L Bedside Chloride 105 MMOL/L Anion Gap 8 MEQ/L Bedside Blood Urea Nitrogen 15 MG/DL Bedside Creatinine 0.6 MG/DL Estimat Glomerular Filtration Rate 112 ML/MIN Bedside Glucose 98 MG/DL MDM Medical Decision Making Medical Screen Exam Complete: Yes Emergency Medical Condition: Yes Medical Record Reviewed: Yes Interpretation(s) Last Impressions Head CT 05/05/17 1511 Signed Impressions: Service Date/Time: Friday, May 05, 2017 15:15 - CONCLUSION: No acute disease. Brayden Jansen MD FACR Brain MRI 05/05/17 0000 Signed Impressions: Service Date/Time: Friday, May 05, 2017 15:50 - CONCLUSION: 1. No acute intracranial abnormality identified. Forrest Jansen MD Differential Diagnosis Anderson Palsy vs. CVA versus TIA versus complex migraine versus electrolyte abnormality Narrative Course 32-year-old female presents to the emergency department for evaluation of stroke symptoms. Stroke alert is initiated. 1513 -I spoke to neurologist on-call, Dr. Felix. He is informed the patient. Patient is going to CT scan at this time 1520 - Dr. Felix is examining patient. CT is negative. Dr. Felix recommends MRI- if neg, most likely Anderson Palsy, send home with prednisone taper, antivirals and follow up in his office. EKG shows sinus rhythm, heart rate 77, no acute ST changes. CBC shows no acute abnormality. CMP is unremarkable. Coags are unremarkable. MRI shows no acute intracranial abnormality Patient will be discharged with a prednisone taper and antivirals. She is to follow with Dr. Felix. A mandatory referral will be placed. The patient was discharged in stable condition with instructions, including return instructions and follow up instructions. Diagnosis Primary Impression: Lau's palsy Referrals: Chandrakant Felix MD PhD call for appointment Patient Instructions: Lau Palsy (ED), General Instructions Departure Forms: Tests/Procedures, Work Release Enter return to work date: May 08, 2017 Additional Instructions: Take prednisone as directed. Start this tomorrow. Take valacyclovir as directed. Follow up with Dr. Felix. A mandatory referral was placed. Return to the emergency department for any acute, worsening of symptoms. Med/Other Pt SpecificInfo: Prescription(s) given Scripts Valacyclovir (Valacyclovir) 1,000 Mg Tab 1000 MG PO TID for Mgmt Viral Infection for 7 Days, #90 TAB 0 Refills Prov: So Clark 05/05/17 Prednisone (Prednisone) 20 Mg Tab 20 MG PO DIRECTED, #24 TAB 0 Refills Take 60 MG daily x 4 days, then 40 MG x 4 days, then 20 MG daily x 4 days. Prov: So Clark 05/05/17 Disposition: 01 DISCHARGE HOME Condition: Stable So Clark May 05, 2017 15:19
--- NOTE | 2017-05-05 15:26 | RADRPT ---
EXAM DATE/TIME: 05/05/2017 15:15 [facility] COMPARISON: CT BRAIN W/O CONTRAST, May 04, 2017, 16:14. INDICATIONS : Stroke alert, right sided weakness and right facial droop. RADIATION DOSE: 56.77 CTDIvol (mGy) This report was called to Dr. Klein at 1523. MEDICAL HISTORY : Hypertension. SURGICAL HISTORY : None. ENCOUNTER: Initial ACUITY: 1 day PAIN SCALE: 0/10 LOCATION: cranial TECHNIQUE: Multiple contiguous axial images were obtained of the head. Using automated exposure control and adj ustment of the mA and/or kV according to patient size, radiation dose was kept as low as reasonably a chievable to obtain optimal diagnostic quality images. DICOM format image data is available electro nically for review and comparison. FINDINGS: CEREBRUM: The ventricles are normal for age. No evidence of midline shift, mass lesion, hemorrhage or acute in farction. No extra-axial fluid collections are seen. POSTERIOR FOSSA: The cerebellum and brainstem are intact. The 4th ventricle is midline. The cerebellopontine angle i s unremarkable. EXTRACRANIAL: The visualized portion of the orbits is intact. SKULL: The calvaria is intact. No evidence of skull fracture. CONCLUSION: No acute disease. Brayden Jansen MD FACR on May 05, 2017 at 15:22 Board Certified Radiologist. This report was verified electronically.
--- NOTE | 2017-05-05 15:30 | PD ---
Data Data Last Documented VS Vital Signs Date Time Temp Pulse Resp B/P (MAP) Pulse Ox O2 Delivery O2 Flow Rate FiO2 05/05/17 18:16 05/05/17 17:26 75 14 97 Room Air 05/05/17 14:59 98.5 Orders Orders Electrocardiogram (05/05/17 15:11) Prothrombin Time / Inr (Pt) (05/05/17 15:11) Act Partial Throm Time (Ptt) (05/05/17 15:11) Complete Blood Count With Diff (05/05/17 15:11) Comprehensive Metabolic Panel (05/05/17 15:11) Ct Brain W/O Iv Contrast(Rout) (05/05/17 15:11) Ecg Monitoring (05/05/17 15:11) Iv Access Insert/Monitor (05/05/17 15:11) Oximetry (05/05/17 15:11) Sodium Chloride 0.9% Flush (Ns Flush) (05/05/17 15:15) I-Stat Profile (05/05/17 15:19) Mri Brain W/O Contrast (05/05/17 ) Lyme Disease Pcr (05/05/17 16:08) Prednisone (Deltasone) (05/05/17 17:45) Ed Discharge Order (05/05/17 17:39) Labs Laboratory Tests Test 05/05/17 15:09 05/05/17 17:30 White Blood Count 7.8 TH/MM3 Red Blood Count 4.76 MIL/MM3 Hemoglobin 14.4 GM/DL Bedside Hemoglobin 14.3 G/DL Hematocrit 42.1 % Bedside Hematocrit 42.0 % Mean Corpuscular Volume 88.3 FL Mean Corpuscular Hemoglobin 30.2 PG Mean Corpuscular Hemoglobin Concent 34.1 % Red Cell Distribution Width 14.3 % Platelet Count 238 TH/MM3 Mean Platelet Volume 8.3 FL Neutrophils (%) (Auto) 49.2 % Lymphocytes (%) (Auto) 38.8 % Monocytes (%) (Auto) 8.3 % Eosinophils (%) (Auto) 3.2 % Basophils (%) (Auto) 0.5 % Neutrophils # (Auto) 3.8 TH/MM3 Lymphocytes # (Auto) 3.0 TH/MM3 Monocytes # (Auto) 0.6 TH/MM3 Eosinophils # (Auto) 0.2 TH/MM3 Basophils # (Auto) 0.0 TH/MM3 CBC Comment DIFF FINAL Differential Comment Prothrombin Time 9.8 SEC Prothromb Time International Ratio 1.0 RATIO Activated Partial Thromboplast Time 25.5 SEC Bedside Sodium 140 MMOL/L Blood Urea Nitrogen 13 MG/DL Creatinine 0.72 MG/DL Random Glucose 91 MG/DL Total Protein 8.2 GM/DL Albumin 3.6 GM/DL Calcium Level 8.7 MG/DL Alkaline Phosphatase 66 U/L Aspartate Amino Transf (AST/SGOT) 17 U/L Alanine Aminotransferase (ALT/SGPT) 18 U/L Total Bilirubin 0.1 MG/DL Sodium Level 139 MEQ/L Potassium Level 4.2 MEQ/L Chloride Level 106 MEQ/L Carbon Dioxide Level 24.9 MEQ/L Bedside Potassium 4.1 MMOL/L Bedside Chloride 105 MMOL/L Anion Gap 8 MEQ/L Bedside Blood Urea Nitrogen 15 MG/DL Bedside Creatinine 0.6 MG/DL Estimat Glomerular Filtration Rate 112 ML/MIN Bedside Glucose 98 MG/DL MDM Supervised Visit with TAYLOR: Yes Narrative Course I, Dr. Mcknight, have reviewed the advance practice practitioner's documentation and am in agreement, met with the patient face to face, made the diagnosis, and the medical decision making was done by me. *My assessment and Findings: Patient seen and examined by me in addition to So Mg, she has signs and symptoms to suggest Lau's palsy including loss of the ability to close her eye, however she does have some weakness to the right upper and right lower extremity, unfortunately have had only minimal time to examine this patient as there are other critical patients in the department. She is protecting her airway but I have asked for a stroke alert to intermediate this patient's workup. Both So and Kiya discussed the patient with Dr. Felix following an initial CT scan which was negative. Dr. Felix would like to get an MRI and if negative the patient can be discharged with a diagnosis of Lau's palsy. Unexplained findings in her right upper and right lower extremity the patient was able to ambulate and on reexamination by me she had full strength. Is highly consistent with Lau's palsy. She is stable for discharge Scripts Valacyclovir (Valacyclovir) 1,000 Mg Tab 1000 MG PO TID for Mgmt Viral Infection for 7 Days, #90 TAB 0 Refills Prov: So Clark SURVEY DIRECTOR 05/05/17 Prednisone (Prednisone) 20 Mg Tab 20 MG PO DIRECTED, #24 TAB 0 Refills Take 60 MG daily x 4 days, then 40 MG x 4 days, then 20 MG daily x 4 days. Prov: So Clark 05/05/17 Disposition: 01 DISCHARGE HOME Condition: Stable Lamin Mcknight MD May 05, 2017 15:30
[2017-05-05 15:53] LABS: AUTOMATED NEUTROPHIL # 3.8 TH/MM3 (1.8-7.7); BASOPHIL % 0.5 % (0.0-2.0); EOSINOPHIL # 0.2 TH/MM3 (0-0.4); EOSINOPHIL % 3.2 % (0.0-4.0); HEMATOCRIT 42.1 % (35.0-46.0); HEMOGLOBIN 14.4 GM/DL (11.6-15.3); LYMPH % 38.8 % (9.0-44.0); MEAN CELL VOLUME 88.3 FL (80.0-100.0); MEAN CORPUSCULAR HEMOGLOBIN 30.2 PG (27.0-34.0); MEAN CORPUSCULAR HGB CONC 34.1 % (32.0-36.0); MEAN PLATELET VOLUME 8.3 FL (7.0-11.0); MONO % 8.3 % (0.0-8.0); MONOCYTE # 0.6 TH/MM3 (0-0.9); NEUT % 49.2 % (16.0-70.0); PLATELET COUNT 238 TH/MM3 (150-450); RED BLOOD COUNT 4.76 MIL/MM3 (4.00-5.30); RED CELL DISTRIBUTION WIDTH 14.3 % (11.6-17.2); WHITE BLOOD COUNT 7.8 TH/MM3 (4.0-11.0)
[2017-05-05 16:11] LABS: PROTHROMBIN TIME - PATIENT 9.8 SEC (9.8-11.6)
--- NOTE | 2017-05-05 16:15 | RADRPT ---
EXAM DATE/TIME: 05/05/2017 15:50 [facility] COMPARISON: No previous studies available for comparison. INDICATIONS : Right sided facial droops and numbness. MEDICAL HISTORY : Hypertension. SURGICAL HISTORY : None. ENCOUNTER: Initial ACUITY: 1 day PAIN SCORE: 0/10 LOCATION: cranial TECHNIQUE: Multiplanar, multisequence MRI of the brain was performed without contrast. FINDINGS: CEREBRUM: The ventricles are normal for age. No evidence of midline shift, mass lesion, hemorrhage or acute in farction. No extraaxial fluid collections are seen. The pituitary gland and suprasellar cistern are normal in configuration. WHITE MATTER: No significant signal abnormalities are seen in the white matter. POSTERIOR FOSSA: The cerebellum and brainstem are intact. The 4th ventricle is midline. The cerebellopontine angle is unremarkable. The cerebellar tonsils are normal in position. DIFFUSION IMAGING: No focal areas of restricted diffusion are seen. No evidence of acute infarction. EXTRACRANIAL: The visualized portions of the orbits and paranasal sinuses are unremarkable. CONCLUSION: 1. No acute intracranial abnormality identified. Forrest Jansen MD on May 05, 2017 at 16:11 Board Certified Radiologist. This report was verified electronically.
--- NOTE | 2017-05-05 16:25 | MB ---
cc: Chandrakant Felix MD, PhD DATE: 05/05/2017 REASON FOR CONSULTATION: Stroke alert. HISTORY OF PRESENT ILLNESS: Ms. Esparza is a very nice, 32-year-old woman who last evening began to experience some numbness in the tongue on the right side and then today noted a right facial weakness with the facial droop. She also noted tingling of the right arm around 10:30 this morning and the right leg also was tingling and somewhat weak. She had a mild headache as well. She has no other neurologic symptoms. PAST MEDICAL HISTORY: She has a history of hypertension, sciatica, and history of asthma. HOME MEDICATIONS: 1. Baclofen 10 mg. 2. Gabapentin 100 mg t.i.d. 3. Lisinopril 10 mg daily. 4. Counce as needed for pain. ALLERGIES: NONE KNOWN. PHYSICAL EXAMINATION: VITAL SIGNS: Her blood pressure is 195/143, pulse is 80, respiratory rate is 25, temperature of 98.5 degrees. NEUROLOGIC: Higher cortical functions are normal, including speech. Cranial nerves reveal a right lower motor neuron cranial nerve 7 palsy. She is weak and wrinkling the forehead as well as closing the eye on the right and also has lower facial weakness on the right. The extraocular movements are normal. The pupils equal, and reactive to light. Facial sensation slightly diminished on the right compared to the left. Tongue protrudes midline with no atrophy, no fasciculations. Palate elevates symmetrically. The trapezius strength is normal bilaterally. On motor examination, she does demonstrate 5/5 strength of all groups in both upper and lower extremities. There is no drift. Fine motor skills are within normal limits. Reflexes are 2+ symmetric with no Babinski sign present. Cerebral testing is normal with no sign of dysmetria. IMAGING STUDIES: CT scan of the brain is normal, no acute changes present. LABORATORY DATA: White count 7800; hemoglobin 14.4; hematocrit 42.8%; platelet count 238,000. Sodium is 140, potassium 4.1, chloride 105, CO2 is pending, the BUN is 15, creatinine 0.6, glucose 98. Coags pending. ASSESSMENT AND PLAN: Right Lau's palsy. I doubt stroke; however, with the symptoms of numbness in the right arm and right leg, I would recommend proceeding with an MRI of the brain to be sure there is no small infarction. I also recommend controlling her hypertension. From the neurologic standpoint. if the MRI is normal and the blood pressure is controlled, the patient could be discharged home on a prednisone taper. We will also check labs for Lyme PCR to be sure this is not a Lau's palsy associated with Lyme's disease. Chandrakant Felix MD, PhD FIOR/CESAR , 04:08 PM , 04:24 PM
[2017-05-05 16:28] LABS: ALBUMIN 3.6 GM/DL (3.4-5.0); ALT (GPT) 18 U/L (10-53); AST (GOT) 17 U/L (15-37); BICARBONATE 24.9 MEQ/L (21.0-32.0); BLOOD UREA NITROGEN 13 MG/DL (7-18); CALCIUM 8.7 MG/DL (8.5-10.1); CHLORIDE 106 MEQ/L (98-107); CREATININE 0.72 MG/DL (0.50-1.00); GLOMERULAR FILTRATION RATE 112 ML/MIN (>89); GLUCOSE,RANDOM 91 MG/DL (74-106); SODIUM (NA) 139 MEQ/L (136-145)
[2017-05-05 16:30] LABS: ALKALINE PHOSPHATASE 66 U/L (45-117); TOTAL BILIRUBIN ADULT 0.1 MG/DL (0.2-1.0); TOTAL PROTEIN 8.2 GM/DL (6.4-8.2)
[2017-05-05 17:26] VITALS: BP 154/104; PULSE 75; RESP 14; O2SAT 97
[2017-05-05] MEDS ORDERED: PRED20 PO (17:37)
[2017-05-05] MEDS ORDERED: VALA1TAB PO (17:37)
[2017-05-05] MEDS ORDERED: predniSONE 20 MG TAB PO ONE (17:45)
--- NOTE | 2017-05-05 19:23 | EKG ---
Date Performed: 05/05/2017 Time Performed: 15:34:03 PTAGE: 32 years EKG: Sinus rhythm SEPTAL MYOCARDIAL INFARCTION ABNORMAL ECG Compared to prior electrocardiogram, rate has decreased PREVIOUS TRACING : 04/17/2016 19.01 DOCTOR: Anurag Lloyd Interpretating Date/Time 05/05/2017 19:21:55
== END 2017-05-06 21:04 | disposition home or self-care (01) ==
LOC: NEPC 14:39
DX: G51.0 Bell's palsy (principal); R94.31 Abnormal electrocardiogram [ECG] [EKG]; R51 Headache; I10 Essential (primary) hypertension; G62.9 Polyneuropathy, unspecified; J45.909 Unspecified asthma, uncomplicated; F32.9 Major depressive disorder, single episode, unspecified
CPT/HCPCS: 70450; 70551; 80048; 80053; 85025; 85610; 85730; 87801; 93005; 99285; J7512

== ENCOUNTER 2017-08-07 15:27 | Emergency (ER) | payer OTHER ==
[~2017-08-07] VITALS: Ht 157.5 cm; Wt 85.0 kg
[~2017-08-07 15:27] MED LIST changes: +BACL10TA PO; +GABA100C4 PO; +PRED20 PO; +VALA1TAB PO
[2017-08-07 15:35] VITALS: BP 133/98; PULSE 82; RESP 14; TEMP 98.5
[2017-08-07] MEDS ORDERED: IBUP-232 PO (17:01)
--- NOTE | 2017-08-07 17:01 | PD ---
HPI Chief Complaint: Injury Time Seen by Provider: 16:23 Travel History International Travel<30 days: No Contact w/Intl Traveler<30days: No Traveled to known affect area: No History of Present Illness HPI 32-year-old -[place] female presents emergency department with 4 week history of increasing bilateral wrist discomfort, stiffness, and numbness into the first second and third digits on both hands right greater than left. 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 Patient since it started her job she is developed increased pain, discomfort, stiffness, and swelling in both wrists. She wakes up at night with numbness and tingling into the right and left thumb, index, and middle fingers. She states increased episodes of dropping things and feeling numbness in both hands as described. She denies neck pain or shoulder pain. No elbow pain is noted. No previous history of this in the past. Pain is 6 out of 10. She has not tried taking anything for it. She has no known drug allergies PFSH Past Medical History Asthma: Yes Depression: Yes Cardiovascular Problems: Yes (HTN) Diminished Hearing: No Hypertension: Yes Respiratory: Yes (ASTHMA) ?: Not LMP: End of last month : 0 Para: 0 Social History Alcohol Use: Yes (1/2 litter of vodka a day ) Tobacco Use: No Substance Use: No Allergies-Medications (Allergen,Severity, Reaction): Coded Allergies: No Known Allergies (Verified Adverse Reaction, Unknown, 02/25/17) Reported Meds & Prescriptions Reported Meds & Active Scripts Active Valacyclovir (Valacyclovir HCl) 1,000 Mg Tab 1,000 Mg PO TID 7 Days Prednisone 20 Mg Tab 20 Mg PO DIRECTED Take 60 MG daily x 4 days, then 40 MG x 4 days, then 20 MG daily x 4 days. [place] (Hydrocodone-Acetaminophen) 5 Mg-325 Mg Tab 1 Tab PO Q6H PRN Reported Baclofen 10 Mg Tab Unknown Dose PO Gabapentin 100 Mg Cap Unknown Dose PO TID Lisinopril 10 Mg Tab 10 Mg PO DAILY Review of Systems Except as stated in HPI: all other systems reviewed are Neg General / Constitutional: No: Fever Eyes: No: Visual changes HENT: No: Headaches Cardiovascular: No: Chest Pain or Discomfort Respiratory: No: Shortness of Breath Gastrointestinal: No: Abdominal Pain Genitourinary: No: Dysuria Musculoskeletal: No: Pain Skin: No Rash Neurologic: Positive: Weakness (See history of present illness), Paresthesia Psychiatric: No: Depression Endocrine: No: Polydipsia Hematologic/Lymphatic: No: Easy Bruising Physical Exam Narrative GENERAL: Patient appears in no obvious distress. SKIN: Warm and dry. Normal color. Normal turgor. HEAD: Atraumatic. Normocephalic. EYES: Pupils equal and round. No scleral icterus. No injection or drainage. ENT: No nasal bleeding or discharge. Mucous membranes pink and moist. Pharynx is clear. Airways patent NECK: Trachea midline. Supple and nontender without tenderness CARDIOVASCULAR: Regular rate and rhythm. RESPIRATORY: No accessory muscle use. Clear to auscultation. Breath sounds equal bilaterally. GASTROINTESTINAL: Abdomen soft, non-tender, nondistended. Hepatic and splenic margins not palpable. MUSCULOSKELETAL: Extremities without clubbing, cyanosis, or edema. No obvious deformities. Patient has positive Tinel sign in both carpal tunnel regions right greater than left. Patient has normal strength but decreased sensation in the thumbs, index, and middle fingers of both hands, Right greater than left. NEUROLOGICAL: Awake and alert. No obvious cranial nerve deficits. Motor grossly within normal limits. Five out of 5 muscle strength in the arms and legs. Normal speech. PSYCHIATRIC: Appropriate mood and affect; insight and judgment normal. Data Data Last Documented VS Vital Signs Date Time Temp Pulse Resp B/P (MAP) Pulse Ox O2 Delivery O2 Flow Rate FiO2 08/07/17 15:35 98.5 82 14 133/98 (110) Orders Orders Splint Or Brace Apply/Monitor (08/07/17 16:54) Splint Or Brace Apply/Monitor (08/07/17 16:54) [facility] Medical Decision Making Medical Screen Exam Complete: Yes Emergency Medical Condition: Yes Differential Diagnosis Pattern of motion injury. Workplace injury. Carpal tunnel. Narrative Course I feel the patient is developing carpal tunnel symptoms secondary to repetitive motion at work. Patient is placed in carpal tunnel splints bilaterally which should be worn at all times until cleared by workers comp. Patient is given ibuprofen 600 mg 4 times daily #40 Workers comp form is completed with work restrictions. Recommend follow-up with workers comp provider for further evaluation and treatment. Patient can return if worsening symptoms develop as needed. Diagnosis Primary Impression: Carpal tunnel syndrome on both sides Patient Instructions: Carpal Tunnel Syndrome (DC), Carpal Tunnel Syndrome Exercises (GEN), General Instructions Departure Forms: Work Release Special Instructions: See workers comp form Additional Instructions: I feel the patient is developing carpal tunnel symptoms secondary to repetitive motion at work. Patient is placed in carpal tunnel splints bilaterally which should be worn at all times until cleared by workers comp. Patient is given ibuprofen 600 mg 4 times daily #40 Workers comp form is completed with work restrictions. Recommend follow-up with workers comp provider for further evaluation and treatment. Patient can return if worsening symptoms develop as needed. Med/Other Pt SpecificInfo: Prescription(s) given Disposition: DISCHARGE HOME Condition: Stable Kulwant Win Aug 07, 2017 17:01
== END 2017-08-07 17:29 | disposition home or self-care (01) ==
LOC: NEPD 15:27
DX: G56.03 Carpal tunnel syndrome, bilateral upper limbs (principal); I10 Essential (primary) hypertension
CPT/HCPCS: 99283; L3908

== ENCOUNTER → 2017-08-09 | Outpatient (CLI) | payer OTHER ==
[~2017-08-09] MED LIST changes: +IBUP-232 PO
--- NOTE | 2017-08-09 16:15 | RADRPT ---
EXAM DATE: 08/09/2017 4:12 PM EDT AGE/SEX: 32 years / Female INDICATIONS: Right hand pain for the past month. No known trauma. Pain near distal ulna. CLINICAL DATA: This is the patient's initial encounter. Patient reports that signs and symptoms have been present for 1 month and indicates a pain score of 8/10. MEDICAL/SURGICAL HISTORY: None. None. COMPARISON: No prior exams available for comparison. FINDINGS: Bony structures are intact and in normal alignment. Osseous density is normal. Soft tissues are unre markable. No radiopaque foreign bodies seen. CONCLUSION: Negative for fracture or dislocation. Followup in 7-10 days is suggested if symptoms persist. Electronically signed by: Brayden Jansen MD 08/09/2017 4:13 PM EDT
== END ==
LOC: HRAD 15:42
DX: M79.641 Pain in right hand (principal)
CPT/HCPCS: 73130